=== PATIENT | male | born 2000 | race Caucasian/White ===

== ENCOUNTER 2022-08-20 19:23 | Inpatient (IN) ==
[2022-08-20] MEDS ORDERED: IOPAMIDOL 100 ML BOTTLE IV ONE (19:24)
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
[2022-08-20 19:39] LABS: POC Calcium, Ionized 1.2 (1.16-1.32); POC Creatinine 0.8 (0.6-1.2); POC Potassium 3.7 (3.3-5.1)
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
[2022-08-20] MEDS ORDERED: ONDANSETRON 4 MG/2 ML VIAL IV PRN (20:40)
[2022-08-20] MEDS ORDERED: ACETAMINOPHEN 325 MG TABLET PO PRN (20:40)
[2022-08-20] MEDS ORDERED: diphenhydrAMINE 50 MG/ML VIAL IV ONE (21:40)
[2022-08-20] MEDS ORDERED: 0.9 % SODIUM CHLORIDE 250 ML IV SCH (23:15)
[2022-08-20] MEDS ORDERED: PIPERACILLIN SODIUM/TAZOBACTAM 3.375 GM VIAL IV ONE (23:21)
[2022-08-20] MEDS: 0.9 % SODIUM CHLORIDE 250 ML IV SCH ×2 (23:34→23:50)
[2022-08-20] MEDS ORDERED: LORazepam 2 MG/ML VIAL ONE (23:47)
[2022-08-20] MEDS: PIPERACILLIN SODIUM/TAZOBACTAM 3.375 GM in DEXTROSE 5% IN WATER 50 ML IV SCH (23:48)
[2022-08-20] MEDS: LORazepam 2 MG/ML VIAL IV PRN (23:50)
[2022-08-20] MEDS: LACTATED RINGERS 1,000 ML IV SCH (23:51)
[2022-08-21] MEDS ORDERED: ONDANSETRON 4 MG/2 ML VIAL ONE (00:35)
[2022-08-21] MEDS ORDERED: HYDROmorphone 1 MG/ML SYRINGE ONE (00:36)
[2022-08-21] MEDS: HYDROmorphone 0.5 MG/0.5 ML SYRINGE IV PRN ×2 (00:37→07:32)
[2022-08-21 02:35] LABS: Hematocrit 31.7 % (40.1-51.0); Hemoglobin 10.5 g/dL (13.7-17.5)
[2022-08-21] MEDS: PIPERACILLIN SODIUM/TAZOBACTAM 3.375 GM in DEXTROSE 5% IN WATER 50 ML IV SCH ×4 (04:23→17:28)
[2022-08-21] MEDS: LACTATED RINGERS 1,000 ML IV SCH ×4 (05:13→17:04)
[2022-08-21 06:32] LABS: Basophils # (Auto) 0.04 K/mcL (0.00-0.30); Basophils % (Auto) 0.3 % (0.0-2.0); Eosinophils # (Auto) 0.08 K/mcL (0.00-0.70); Eosinophils % (Auto) 0.6 % (0.0-7.0); Hematocrit 33.8 % (40.1-51.0); Hemoglobin 10.2 g/dL (13.7-17.5); Lymphocytes # (Auto) 3.14 K/mcL (1.50-4.80); Lymphocytes % (Auto) 21.8 % (15.5-49.0); Mean Corpuscular HGB Conc 30.2 g/dL (31.0-36.0); Mean Platelet Volume 9.4 fL (8.8-12.5); Monocytes # (Auto) 1.26 K/mcL (0.10-0.90); Monocytes % (Auto) 8.7 % (1.0-12.0); Neutrophils % (Auto) 68.3 % (38.0-78.0); Platelet Count 173 K/mcL (140-440); RBC 3.52 M/mcL (4.63-6.08); Red Cell Distribution Width 13.2 % (11.5-14.5); WBC 14.4 K/mcL (4.5-11.0)
[2022-08-21 07:26] LABS: Blood Urea Nitrogen 17 mg/dL (6-20); Calcium 7.9 mg/dL (8.6-10.4); Carbon Dioxide 19 mmol/L (22-30); Chloride 108 mmol/L (96-108); Glomerular Filtration Rate 140; Glucose 90 mg/dL (70-105)
--- NOTE | 2022-08-21 07:51 | Cat Scan Report ---
History: Abdominal pain, decreased level of consciousness, postop repair of left inguinal hernia TECHNIQUE: Following injection of intravenous nonionic contrast the patient was imaged from above the diaphragm through the symphysis pubis at 2.5 mm intervals during the venous phase. Sagittal and coronal reformats were created. The radiation exposure was limited using dose reduction technology. FINDINGS: The lung bases are clear. There is a small cyst high in the right lobe of liver. The liver is otherwise normal in size and homogeneous. The spleen is normal. No abnormality is seen in the gallbladder. Pancreas, adrenals and kidneys are normal. There is no kidney stone or hydronephrosis. There is moderate amount of ingested fluid in the stomach. Small intestine is decompressed. There is normal quantity of stool in the large bowel. In the midline of the pelvis there is a heterogeneous semisolid structure measuring roughly 6 x 11 cm. This may be a large hematoma. There is also free fluid in the pelvis extending up to both diaphragms. Aorta and inferior vena cava are normal. There is no evidence of active intra-abdominal bleeding. Urinary bladder is completely decompressed. There is a Tatum catheter. The balloon and tip of the catheter appear to be extraluminal and located along the right lateral pelvic sidewall. There are bubbles of air and stranding of fat in the left inguinal region extending into the left spermatic cord following the preceding hernia repair. There is no residual hernia at this site. Small bubbles of air are also seen in the epigastrium. Bone windows show no skeletal lesion. IMPRESSION: Large pelvic hematoma. Tatum catheter appears to have perforated the bladder and the tip is located along the right lateral pelvic sidewall Interpreted and Authenticated by: Satya Ochoa 08/21/22
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
[2022-08-21] MEDS: oxyCODONE HCL 5 MG TABLET PO PRN ×4 (08:06→23:01)
[2022-08-21] MEDS: NICOTINE POLACRILEX 2 MG GUM CHEW/PARK PRN ×2 (09:18→17:23)
[2022-08-21] MEDS: NICOTINE 14 MG PATCH TOPICAL SCH (09:18)
[2022-08-21] MEDS ORDERED: IOTHALAMATE MEGLUMINE 250 ML VIAL UR ONE (10:53)
--- NOTE | 2022-08-21 11:32 | XRay Report ---
HISTORY: Possible perforation of the urinary bladder, pelvic hematoma FINDINGS: Site Safety Manager film of the pelvis shows the Tatum catheter located far laterally along the right lateral pelvic sidewall. Under fluoroscopic guidance, 250 cc of nonionic contrast was injected. This shows the catheter is within the lumen of the bladder. The bladder is been displaced to the right side of the pelvis. The wall of the bladder is intact without evidence of a tear. There is no reflux into the ureters. Except for the catheter, there are no intraluminal filling defects. The mucosal surface is smooth. 48 seconds of fluoroscopy time was used. Impression: Pelvic mass, probably a hematoma displacing the bladder to the right of the pelvis. No evidence of bladder tear Interpreted and Authenticated by: Satya Ochoa 08/21/22
[2022-08-21 11:55] LABS: Hematocrit 27.8 % (40.1-51.0); Hemoglobin 9.1 g/dL (13.7-17.5)
[2022-08-21] MEDS: LORazepam 2 MG/ML VIAL IV PRN ×2 (17:26→19:29)
[2022-08-21 17:38] LABS: Hematocrit 27.8 % (40.1-51.0); Hemoglobin 9.1 g/dL (13.7-17.5)
[2022-08-21] MEDS: diphenhydrAMINE 25 MG CAPSULE PO ONE ×2 (21:30→23:01)
[2022-08-21 23:26] LABS: Hematocrit 25.7 % (40.1-51.0); Hemoglobin 8.6 g/dL (13.7-17.5)
[2022-08-22] MEDS: PIPERACILLIN SODIUM/TAZOBACTAM 3.375 GM in DEXTROSE 5% IN WATER 50 ML IV SCH ×3 (00:06→12:12)
[2022-08-22] MEDS: LACTATED RINGERS 1,000 ML IV SCH (05:47)
[2022-08-22 06:54] LABS: Hematocrit 26.8 % (40.1-51.0); Hemoglobin 8.8 g/dL (13.7-17.5)
[2022-08-22] MEDS ORDERED: LORazepam 0.5 MG TABLET PO PRN (08:37)
[2022-08-22] MEDS ORDERED: IBUPROFEN 600 MG TABLET PO PRN (08:37)
[2022-08-22] MEDS ORDERED: oxyCODONE HCL 5 MG TABLET PO PRN (08:37)
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
[2022-08-22] MEDS ORDERED: ACETAMINOPHEN 325 MG TABLET PO PRN (08:42)
[2022-08-22] MEDS: NICOTINE 14 MG PATCH TOPICAL SCH (09:26)
[2022-08-22] MEDS: NICOTINE POLACRILEX 2 MG GUM CHEW/PARK PRN (14:47)
== END 2022-08-22 16:15 | disposition left against medical advice (07) | DRG 605 ==
LOC: ED 19:23 → ICU 23:10
PROVIDERS: ADMIT Surgery; ATTEND Surgery